=== PATIENT | female | born 1940 | race Caucasian/White ===

== ENCOUNTER 2019-01-18 02:21 | Inpatient (IN) | payer MEDICARE, OTHER ==
[~2019-01-18] VITALS: Ht 160 cm; Wt 64.9 kg
[~2019-01-18 02:21] MED LIST: ASPI-817; ATEN50TA PO; BACL10TA PO; ERGO500013 PO; ESCI5TAB10 PO; FER325 PO; GABA-528 PO; GLIP5TAB13 PO; HYDR-3672 PO; LOVA10TA63 PO; MECL-77 PO; NAPR-685 PO; SENN1TAB67 PO; SITA1TAB PO; SULF-182 PO; TAMS-14 PO; TRAM50TA2 PO
[2019-01-18] MEDS ORDERED: ALBUTEROL 0.083% (NEB) 2.5 MG/3 ML AMP INH STA (02:23)
[2019-01-18] MEDS ORDERED: IPRATROPIUM (NEB) 0.5 MG/2.5 ML AMP INH STA (02:23)
[2019-01-18] MEDS ORDERED: CEFTRIAXONE 1 GM/50 ML (PMX) 50 ML IVPB STA (02:26)
[2019-01-18] MEDS ORDERED: FUROSEMIDE 40 MG INJ IV STA (02:26)
[2019-01-18] MEDS ORDERED: AZITHROMYCIN 500MG/NS (PMX) 250 ML IV STA (02:26)
[2019-01-18] MEDS ORDERED: NITROGLYCERIN 50 MG/D5W (PMX) 250 ML IV STA (02:26)
[2019-01-18] MEDS ORDERED: ASPIRIN 325 MG TAB PO ONE (02:30)
[2019-01-18] MEDS ORDERED: ONDANSETRON 4 MG INJ IV STA (03:53)
[2019-01-18] MEDS ORDERED: ACETAMINOPHEN 650MG/20.3ML CUP PO PRN (04:00)
[2019-01-18] MEDS ORDERED: ACETAMINOPHEN 325 MG TAB PO PRN ×2 (04:00→06:30)
[2019-01-18] MEDS ORDERED: ONDANSETRON 4 MG INJ IV PRN ×3 (04:00→06:30)
[2019-01-18] MEDS ORDERED: ALBUTEROL/IPRATROPIUM (NEB) 3 ML AMP NEB PRN (04:00)
[2019-01-18 05:49] VITALS: Ht 160 cm; Wt 64.9 kg
[2019-01-18] MEDS ORDERED: NITROGLYCERIN (SL) 0.4 MG TAB SL PRN (06:30)
[2019-01-18] MEDS ORDERED: NACL 0.9% 3 ML SYG IV SCH (06:30)
[2019-01-18] MEDS ORDERED: ALBUTEROL/IPRATROPIUM (NEB) 3 ML AMP HHN PRN (06:30)
[2019-01-18] MEDS: CEFTRIAXONE 1 GM/50 ML (PMX) 50 ML IVPB SCH (07:25)
[2019-01-18 07:27] VITALS: BP 121/58; PULSE 78; RESP 20
[2019-01-18] MEDS: SENNA/DOCUSATE NA (8.6MG/50MG) TAB PO SCH (08:45)
[2019-01-18] MEDS: ASPIRIN (EC) 81 MG TAB PO SCH (08:45)
[2019-01-18] MEDS: GABAPENTIN 400 MG CAP PO SCH ×3 (08:45→20:43)
[2019-01-18] MEDS: BACLOFEN 10 MG TAB PO SCH (08:45)
[2019-01-18] MEDS: FERROUS SULFATE (EC) 325 MG TAB PO SCH (08:45)
[2019-01-18] MEDS: ESCITALOPRAM 10 MG TAB PO SCH (08:46)
[2019-01-18] MEDS: ATENOLOL 50 MG TAB PO SCH (08:47)
[2019-01-18] MEDS: FAMOTIDINE 20 MG INJ IV SCH ×2 (08:48→20:47)
[2019-01-18] MEDS: FUROSEMIDE 40 MG INJ IV SCH (08:49)
[2019-01-18] MEDS: HEPARIN 5,000 UNIT/1 ML VIAL SC SCH ×4 (08:50→21:24)
[2019-01-18] MEDS: MECLIZINE 25 MG TAB PO SCH ×2 (08:53→20:46)
[2019-01-18] MEDS ORDERED: NON-FORMULARY/PATIENT OWN MED (Sitagliptin Phos/Metformin HCl (Janumet 50-500 mg Tablet) 1 PO SCH (09:00)
[2019-01-18] MEDS ORDERED: FUROSEMIDE 40 MG INJ IV SCH (09:00)
[2019-01-18] MEDS: AZITHROMYCIN 500MG/NS (PMX) 250 ML IVPB SCH (11:07)
[2019-01-18 11:12] VITALS: BP 100/52; PULSE 71; RESP 20
[2019-01-18 15:13] VITALS: BP 124/54; PULSE 70; RESP 20
[2019-01-18] MEDS ORDERED: GLUCAGON 1 MG INJ IM PRN (19:30)
[2019-01-18] MEDS ORDERED: GLUCOSE GEL 15 GRAM TUBE BUCCAL PRN (19:30)
[2019-01-18] MEDS ORDERED: DEXTROSE 50% 50 ML SYRINGE IV PRN ×2 (19:30)
[2019-01-18] MEDS ORDERED: GLUCOSE GEL 15 GRAM TUBE PO PRN ×2 (19:30)
[2019-01-18 19:44] VITALS: BP 116/58; PULSE 64; RESP 20
[2019-01-18] MEDS: traMADol 50 MG TAB PO SCH (20:46)
[2019-01-18] MEDS: ATORVASTATIN 10 MG TAB PO SCH (20:46)
[2019-01-18] MEDS: INSULIN ASPART [NOVOLOG] 3 ML PEN SC SCH (21:00)
[2019-01-18] MEDS ORDERED: NON-FORMULARY/PATIENT OWN MED (Lovastatin* 10 MG) PO SCH (21:00)
[2019-01-18] MEDS: INSULIN GLARGINE [LANTus] (100 UNITS/ML) SYG SC SCH (21:23)
[2019-01-18 23:29] VITALS: BP 123/59; PULSE 65; RESP 20
[2019-01-19] MEDS: ACCU-CHEK XX SCH (02:30)
[2019-01-19 04:16] VITALS: BP 144/65; PULSE 80; RESP 20
[2019-01-19] MEDS: CEFTRIAXONE 1 GM/50 ML (PMX) 50 ML IVPB SCH (05:37)
[2019-01-19] MEDS: INSULIN ASPART [NOVOLOG] 3 ML PEN SC SCH ×4 (07:55→21:22)
[2019-01-19 08:00] VITALS: BP 143/67; PULSE 62; RESP 18
[2019-01-19] MEDS: AZITHROMYCIN 500MG/NS (PMX) 250 ML IVPB SCH (08:37)
[2019-01-19] MEDS: FAMOTIDINE 20 MG INJ IV SCH (08:37)
[2019-01-19] MEDS: BACLOFEN 10 MG TAB PO SCH (08:38)
[2019-01-19] MEDS: SENNA/DOCUSATE NA (8.6MG/50MG) TAB PO SCH (08:38)
[2019-01-19] MEDS: FERROUS SULFATE (EC) 325 MG TAB PO SCH (08:38)
[2019-01-19] MEDS: ESCITALOPRAM 10 MG TAB PO SCH (08:38)
[2019-01-19] MEDS: GABAPENTIN 400 MG CAP PO SCH ×3 (08:38→21:11)
[2019-01-19] MEDS: ASPIRIN (EC) 81 MG TAB PO SCH (08:39)
[2019-01-19] MEDS: MECLIZINE 25 MG TAB PO SCH ×2 (08:39→21:12)
[2019-01-19] MEDS: ATENOLOL 50 MG TAB PO SCH (08:40)
[2019-01-19] MEDS: FUROSEMIDE 40 MG INJ IV SCH (08:40)
[2019-01-19] MEDS: HEPARIN 5,000 UNIT/1 ML VIAL SC SCH ×2 (08:55→21:22)
[2019-01-19 11:57] VITALS: BP 131/62; PULSE 53; RESP 18
[2019-01-19] MEDS ORDERED: FUROSEMIDE 20 MG INJ IV ONE (15:30)
[2019-01-19 16:22] VITALS: BP 125/73; PULSE 53; RESP 20
[2019-01-19 20:00] VITALS: BP 151/90; PULSE 52; RESP 20
[2019-01-19] MEDS: traMADol 50 MG TAB PO SCH (21:12)
[2019-01-19] MEDS: ATORVASTATIN 10 MG TAB PO SCH (21:12)
[2019-01-19] MEDS: INSULIN GLARGINE [LANTus] (100 UNITS/ML) SYG SC SCH (21:23)
[2019-01-20] VITALS: BP 133/62; PULSE 58; RESP 20
[2019-01-20] MEDS ORDERED: ACCU-CHEK XX ONE (01:00)
[2019-01-20] MEDS ORDERED: INSULIN ASPART [NOVOLOG] 3 ML PEN SC ONE (01:00)
[2019-01-20] MEDS: ACCU-CHEK XX SCH (02:00)
[2019-01-20 03:48] VITALS: BP 130/65; PULSE 54; RESP 20
[2019-01-20] MEDS: CEFTRIAXONE 1 GM/50 ML (PMX) 50 ML IVPB SCH (06:11)
[2019-01-20] MEDS: INSULIN ASPART [NOVOLOG] 3 ML PEN SC SCH ×4 (07:55→20:58)
[2019-01-20] MEDS: SENNA/DOCUSATE NA (8.6MG/50MG) TAB PO SCH (08:22)
[2019-01-20] MEDS: GABAPENTIN 400 MG CAP PO SCH ×3 (08:22→20:49)
[2019-01-20] MEDS: AZITHROMYCIN 500MG/NS (PMX) 250 ML IVPB SCH (08:22)
[2019-01-20] MEDS: BACLOFEN 10 MG TAB PO SCH (08:23)
[2019-01-20] MEDS: MECLIZINE 25 MG TAB PO SCH ×2 (08:23→20:49)
[2019-01-20] MEDS: FUROSEMIDE 40 MG TAB PO SCH (08:23)
[2019-01-20] MEDS: ESCITALOPRAM 10 MG TAB PO SCH (08:23)
[2019-01-20] MEDS: FERROUS SULFATE (EC) 325 MG TAB PO SCH (08:23)
[2019-01-20] MEDS: ASPIRIN (EC) 81 MG TAB PO SCH (08:24)
[2019-01-20] MEDS: FAMOTIDINE 20 MG TAB PO SCH (08:24)
[2019-01-20 08:25] VITALS: BP 158/109; PULSE 62; RESP 20
[2019-01-20] MEDS: HEPARIN 5,000 UNIT/1 ML VIAL SC SCH ×2 (08:25→20:59)
[2019-01-20] MEDS: ATENOLOL 50 MG TAB PO SCH (08:27)
[2019-01-20 12:04] VITALS: BP 160/70; PULSE 65; RESP 20
[2019-01-20] MEDS: AMLODIPINE 2.5 MG TAB PO SCH ×2 (13:56→20:49)
[2019-01-20] MEDS ORDERED: HEPARIN 5,000 UNIT/1 ML VIAL SC SCH (14:00)
[2019-01-20] MEDS ORDERED: FUROSEMIDE 20 MG INJ IV ONE (15:00)
[2019-01-20 16:19] VITALS: BP 136/63; PULSE 65; RESP 18
[2019-01-20 20:14] VITALS: BP 143/78; PULSE 67; RESP 18
[2019-01-20] MEDS: traMADol 50 MG TAB PO SCH (20:49)
[2019-01-20] MEDS: ATORVASTATIN 10 MG TAB PO SCH (20:49)
[2019-01-20] MEDS: INSULIN GLARGINE [LANTus] (100 UNITS/ML) SYG SC SCH (21:14)
[2019-01-21] VITALS: BP 127/67; PULSE 70; RESP 19
[2019-01-21] MEDS: ACCU-CHEK XX SCH (02:12)
[2019-01-21 04:15] VITALS: BP 160/70; PULSE 60; RESP 18
[2019-01-21] MEDS: CEFTRIAXONE 1 GM/50 ML (PMX) 50 ML IVPB SCH (05:15)
[2019-01-21] MEDS: POLYETHYLENE GLYCOL 17 GM PACKET PO PRN (06:10)
[2019-01-21 07:26] VITALS: BP 144/65; PULSE 62; RESP 20
[2019-01-21] MEDS: INSULIN ASPART [NOVOLOG] 3 ML PEN SC SCH ×4 (07:57→21:09)
[2019-01-21] MEDS: AZITHROMYCIN 500MG/NS (PMX) 250 ML IVPB SCH (07:59)
[2019-01-21] MEDS: FAMOTIDINE 20 MG TAB PO SCH (07:59)
[2019-01-21] MEDS: MECLIZINE 25 MG TAB PO SCH ×2 (08:00→20:57)
[2019-01-21] MEDS: FERROUS SULFATE (EC) 325 MG TAB PO SCH (08:00)
[2019-01-21] MEDS: ASPIRIN (EC) 81 MG TAB PO SCH (08:00)
[2019-01-21] MEDS: FUROSEMIDE 40 MG TAB PO SCH (08:00)
[2019-01-21] MEDS: GABAPENTIN 400 MG CAP PO SCH ×3 (08:00→20:57)
[2019-01-21] MEDS: BACLOFEN 10 MG TAB PO SCH (08:00)
[2019-01-21] MEDS: AMLODIPINE 2.5 MG TAB PO SCH ×2 (08:01→20:57)
[2019-01-21] MEDS: ATENOLOL 50 MG TAB PO SCH (08:02)
[2019-01-21] MEDS: HEPARIN 5,000 UNIT/1 ML VIAL SC SCH ×2 (08:06→21:09)
[2019-01-21] MEDS: ESCITALOPRAM 10 MG TAB PO SCH (08:09)
[2019-01-21 11:52] VITALS: BP 137/68; PULSE 65; RESP 18
[2019-01-21 16:02] VITALS: BP 153/73; PULSE 78; RESP 18
[2019-01-21 20:09] VITALS: BP 144/67; PULSE 69; RESP 18
[2019-01-21] MEDS: ATORVASTATIN 10 MG TAB PO SCH (20:57)
[2019-01-21] MEDS: SENNA/DOCUSATE NA (8.6MG/50MG) TAB PO SCH (20:57)
[2019-01-21] MEDS: traMADol 50 MG TAB PO SCH (20:58)
[2019-01-21] MEDS: INSULIN GLARGINE [LANTus] (100 UNITS/ML) SYG SC SCH (21:09)
[2019-01-22] VITALS (7 sets, daily range): BP systolic 111–158; BP diastolic 58–73; PULSE 57–71; RESP 18–20
[2019-01-22] MEDS: ACCU-CHEK XX SCH (02:33)
[2019-01-22] MEDS: CEFTRIAXONE 1 GM/50 ML (PMX) 50 ML IVPB SCH (05:26)
[2019-01-22] MEDS: INSULIN ASPART [NOVOLOG] 3 ML PEN SC SCH ×4 (07:55→20:26)
[2019-01-22] MEDS: ESCITALOPRAM 10 MG TAB PO SCH (08:24)
[2019-01-22] MEDS: GABAPENTIN 400 MG CAP PO SCH ×3 (08:24→20:15)
[2019-01-22] MEDS: FAMOTIDINE 20 MG TAB PO SCH (08:24)
[2019-01-22] MEDS: MECLIZINE 25 MG TAB PO SCH ×2 (08:24→20:13)
[2019-01-22] MEDS: BACLOFEN 10 MG TAB PO SCH (08:24)
[2019-01-22] MEDS: ASPIRIN (EC) 81 MG TAB PO SCH (08:24)
[2019-01-22] MEDS: ATENOLOL 50 MG TAB PO SCH (08:25)
[2019-01-22] MEDS: FERROUS SULFATE (EC) 325 MG TAB PO SCH (08:25)
[2019-01-22] MEDS: AMLODIPINE 2.5 MG TAB PO SCH ×2 (08:25→20:14)
[2019-01-22] MEDS: FUROSEMIDE 40 MG TAB PO SCH (08:26)
[2019-01-22] MEDS: AZITHROMYCIN 500 MG TAB PO SCH (08:26)
[2019-01-22] MEDS: HEPARIN 5,000 UNIT/1 ML VIAL SC SCH ×2 (09:57→20:27)
[2019-01-22] MEDS: SENNA/DOCUSATE NA (8.6MG/50MG) TAB PO SCH (20:14)
[2019-01-22] MEDS: ATORVASTATIN 10 MG TAB PO SCH (20:14)
[2019-01-22] MEDS: traMADol 50 MG TAB PO SCH (20:14)
[2019-01-22] MEDS: INSULIN GLARGINE [LANTus] (100 UNITS/ML) SYG SC SCH (20:26)
[2019-01-23] MEDS: ACCU-CHEK XX SCH (01:46)
[2019-01-23 04:31] VITALS: BP 149/67; PULSE 64; RESP 18
[2019-01-23] MEDS: POLYETHYLENE GLYCOL 17 GM PACKET PO PRN (05:56)
[2019-01-23] MEDS: CEFTRIAXONE 1 GM/50 ML (PMX) 50 ML IVPB SCH (05:57)
[2019-01-23 07:39] VITALS: BP 149/65; PULSE 58; RESP 18
[2019-01-23] MEDS: INSULIN ASPART [NOVOLOG] 3 ML PEN SC SCH ×3 (07:55→18:25)
[2019-01-23] MEDS: ATENOLOL 50 MG TAB PO SCH (08:32)
[2019-01-23] MEDS: FERROUS SULFATE (EC) 325 MG TAB PO SCH (09:04)
[2019-01-23] MEDS: GABAPENTIN 400 MG CAP PO SCH ×2 (09:04→13:16)
[2019-01-23] MEDS: ESCITALOPRAM 10 MG TAB PO SCH (09:04)
[2019-01-23] MEDS: AMLODIPINE 2.5 MG TAB PO SCH (09:04)
[2019-01-23] MEDS: BACLOFEN 10 MG TAB PO SCH (09:04)
[2019-01-23] MEDS: FUROSEMIDE 40 MG TAB PO SCH (09:05)
[2019-01-23] MEDS: AZITHROMYCIN 500 MG TAB PO SCH (09:05)
[2019-01-23] MEDS: FAMOTIDINE 20 MG TAB PO SCH (09:05)
[2019-01-23] MEDS: MECLIZINE 25 MG TAB PO SCH (09:05)
[2019-01-23] MEDS: ASPIRIN (EC) 81 MG TAB PO SCH (09:05)
[2019-01-23] MEDS: HEPARIN 5,000 UNIT/1 ML VIAL SC SCH (09:45)
[2019-01-23 11:16] VITALS: BP 153/66; PULSE 70; RESP 19
[2019-01-23 14:49] VITALS: BP 139/65; PULSE 83; RESP 19
== END 2019-01-23 23:08 | DRG 291 ==
LOC: E/R 02:21 → TEL 03:33 → EDBEDREQSVC 05:03
PROVIDERS: ADMIT Internal Medicine; ATTEND Internal Medicine
PROC: 4A033R1 Measurement of Arterial Saturation, Peripheral, Percutaneous Approach (ICD-10-PCS; principal; 2019-01-18)
DX: I13.0 Hypertensive heart and chronic kidney disease with heart failure and stage 1 through stage 4 chronic kidney disease, or unspecified chronic kidney disease (principal); J18.9 Pneumonia, unspecified organism; I50.33 Acute on chronic diastolic (congestive) heart failure; N17.9 Acute kidney failure, unspecified; N39.0 Urinary tract infection, site not specified; E87.2 Acidosis; E87.5 Hyperkalemia; E78.5 Hyperlipidemia, unspecified; D64.9 Anemia, unspecified; I07.1 Rheumatic tricuspid insufficiency; E11.22 Type 2 diabetes mellitus with diabetic chronic kidney disease; N18.9 Chronic kidney disease, unspecified; Z79.82 Long term (current) use of aspirin
CPT/HCPCS: 36415; 36600; 70450; 70551; 71045; 76775; 80048; 80053; 80061; 81001; 81003; 82043; 82436; 82550; 82553; 82803; 82962; 83036; 83605; 83735; 83880; 84100; 84133; 84155; 84300; 84443; 84484; 85025; 85610; 85730; 87086; 93005; 93306; 94660; 96365; 96375; 97116; 97161; 97165; 97530; 97535; J0456; J0696; J1644; J1815; J1940; J2405